=== PATIENT | male | born 1970 | race Caucasian/White ===

== ENCOUNTER 2018-01-13 17:16 | Inpatient (IN) | payer BC ==
[2018-01-13] MEDS ORDERED: NS 0.9% 1000 ML*IV.FLUID IV ONE (18:33)
[2018-01-13] MEDS ORDERED: cefTRIAXone(*) 2 GM in NS 0.9% 100 ML* 100 ML IVPB ONE (18:33)
[2018-01-13] MEDS ORDERED: Vancomycin(*) 1,000 MG in NS 0.9% 250 ML* 250 ML IVPB ONE (18:37)
--- NOTE | 2018-01-13 18:38 | ED ---
Headache - HPI Summary HPI Summary: This is scribe Brenton Lao documenting for attending Aniceto Cortez MD. This patient is a 47 year old M presenting to [facility] with a chief complaint of pounding headache since 01/10/2018. The patient rates the pain 10/10 in severity. Patient reports coughing, fever, body aches, and chills. Patient denies sore throat, ear ache, abdominal pain, and neck pain. Patient has no PMHx or He quit smoking 28 years ago. I, Dr. Cortez, personally performed the services described in this documentation as scribed in my presence, and it is both accurate and complete. - History Of Current Complaint Chief Complaint: EDFever Stated Complaint: HEADACHE,POSS DEHYDRATION Time Seen by Provider: 01/13/18 18:28 Hx Obtained From: Patient Onset/Duration: Sudden Onset, Started days ago - 01/10/2018, Still Present Initially Headache Was: Initial Pain Scale(0-10)= - 10/10 Currently Pain Is: Current Pain Scale(0-10)= - 10/10 Timing: Constant Character: Throbbing Aggravating Factor: Nothing Allevating Factors: Nothing Associated Signs And Symptoms: Fever, Other (Noted In Comments) - Coughing, body aches, chills. Denies sore throat, denies ear ache, denies abdominal pain, and denies neck pain. - Allergies/Home Medications Allergies/Adverse Reactions: Allergies Allergy/AdvReac Type Severity Reaction Status Date / Time codeine Allergy Intermediate Rash Verified 01/13/18 20:33 Home Medications: Home Medications Irbesartan 150 mg PO DAILY 01/13/18 [History Confirmed 01/13/18] PMH/Surg Hx/FS Hx/Imm Hx Endocrine/Hematology History: Denies: Hx Diabetes Cardiovascular History: Denies: Hx Hypertension History: Denies: Hx Renal Disease - Immunization History Date of Tetanus Vaccine: within 2 years Date of Influenza Vaccine: 2012 Immunizations Up to Date: Yes Infectious Disease History: Yes Infectious Disease History: Denies: Traveled Outside the [place] in Last 30 Days - Family History Known Family History: Positive: Other - MS Negative: Diabetes - Social History Alcohol Use: Weekly Substance Use Type: Reports: Marijuana Smoking Status (MU): Former Smoker Review of Systems Positive: Fever, Chills, Other - Body aches Positive: Other - Denies neck pain. Negative: Ear Ache Positive: Cough. Negative: Other - Denies sore throat Negative: Abdominal Pain Positive: Headache - pounding HERRERA All Other Systems Reviewed And Are Negative: Yes Physical Exam - Summary Physical Exam Summary: VITAL SIGNS: Reviewed. GENERAL: Patient is a well-developed and nourished MALE who is lying comfortable in the stretcher. Patient is not in any acute respiratory distress. He does not have meningeal signs. HEAD AND FACE: No signs of trauma. No ecchymosis, hematomas or skull depressions. No sinus tenderness. EYES: PERRLA, EOMI x 2, No injected conjunctiva, no nystagmus. Does not display photophobia. EARS: Hearing grossly intact. Ear canals and tympanic membranes are within normal limits. MOUTH: Oropharynx within normal limits. NECK: Supple, trachea is midline, no adenopathy, no JVD, no carotid bruit, no c- spine tenderness, neck with full ROM. CHEST: Symmetric, no tenderness at palpation LUNGS: Clear to auscultation bilaterally. No wheezing or crackles. CVS: Regular rate and rhythm, S1 and S2 present, no murmurs or gallops appreciated. ABDOMEN: Soft, non-tender. No signs of distention. No rebound no guarding, and no masses palpated. Bowel sounds are normal. EXTREMITIES: FROM in all major joints, no edema, no cyanosis or clubbing. NEURO: Alert and oriented x 3. No acute neurological deficits. Speech is normal and follows commands. SKIN: Dry and warm Triage Information Reviewed: Yes Vital Signs On Initial Exam: Initial Vitals Temp Pulse Resp BP Pulse Ox 100.1 F 116 20 164/91 93 01/13/18 17:18 01/13/18 17:18 01/13/18 17:18 01/13/18 17:18 01/13/18 17:18 Vital Signs Reviewed: Yes Diagnostics - Vital Signs Vital Signs Temp Pulse Resp BP Pulse Ox 01/13/18 18:25 104.4 F 109 22 154/97 95 01/13/18 17:18 100.1 F 116 20 164/91 93 - Laboratory Result Diagrams: 01/13/18 19:16 01/13/18 19:16 Lab Statement: Any lab studies that have been ordered have been reviewed, and results considered in the medical decision making process. - Radiology Chest X-Ray Radiology Interpretation Completed By: Radiologist - LEFT-SIDED PNEUMONITIS. ED Physician has reviewed this imaging report. - EKG No standard instances Cardiac Rate: Tachycardia - 107 BPM EKG Rhythm: Sinus Rhythm EKG Interpretation: 18:42. No ST elevations. Normal axis. Headache Course/Dx - Course Assessment/Plan: This patient is a 47-year-old male who presents to the emergency room with a chief complaint of having fevers and a headache and some dry cough. Blood test results shows is anemia, fibrinogen only 150, sodium 132 , carbon dioxide 20, AST is 52, AST of 78, and CRP are 158. In the ED course the patient was flat for sepsis. The patient was given IV fluids, Rocephin and vancomycin since the patient is having and headache. The chest x-ray shows that the patient has a left lower lobe pneumonia therefore I believe that all his symptoms are secondary to pneumonia. After medications the patients symptoms have improved, and he is normotensive. I discussed my physical exam, findings and test results with Dr. Doshi who accepted the patient for admission. The patient is hemodynamically stable alert oriented 3. - Diagnoses Provider Diagnoses: Pneumonia, Sepsis - Critical Care Time Critical Care Time: 30-74 min Discharge - Sign-Out/Discharge Documenting (check all that apply): Patient Departure - Admit to Kaila Doshi DO - Discharge Plan Condition: Stable Disposition: ADMITTED TO [facility] Referrals: No Primary Care Phys,NOPCP [Primary Care Provider] - - Billing Disposition and Condition Condition: STABLE Disposition: Admitted to [facility]
[2018-01-13] MEDS ORDERED: NS 0.9% 250 ML* 250 ML ONE (19:01)
[2018-01-13] MEDS ORDERED: diPHENhydraMINE IV* 50 MG/ML 1 ml VIAL (BENADRYL) IM ONE (19:10)
[2018-01-13] MEDS ORDERED: Metoclopramide IV* 5 MG/ML 2 ML VIAL IV ONE (19:10)
[2018-01-13] MEDS ORDERED: Acetaminophen TAB* 325 MG PO ONE (19:10)
[2018-01-13] MEDS ORDERED: Vancomycin(*) 1,000 MG BAG/ADDV IVPB ONE (19:12)
[2018-01-13] MEDS ORDERED: diPHENhydraMINE IV* 50 MG/ML 1 ml VIAL (BENADRYL) IV ONE (19:22)
[2018-01-13 19:27] LABS: ABS Basophils 0 10^3/ul (0-0.2); ABS Eosinophils 0 10^3/ul (0-0.6); ABS Lymphocytes 0.7 10^3/ul (1.0-4.8); ABS Monocytes 1.4 10^3/ul (0-0.8); ABS Neutrophils 8.6 10^3/ul (1.5-7.7); ABS Nucleated RBC 0 10^3/ul; Eosinophil % 0.1 % (0-6); Hematocrit 36 % (42-52); Hemoglobin 12.1 g/dl (14.0-18.0); Lymphocyte % 6.5 % (25-47); Mean Corpuscular HGB Conc 34 g/dl (31-36); Mean Corpuscular Hemoglobin 30 pg (27-31); Mean Corpuscular Volume 89 fL (80-94); Mean Platelet Volume 7.8 um3 (7.4-10.4); Nucleated Red Blood Cells % 0; Platelet Count 194 10^3/ul (150-450); Red Cell Distribution Width 13 % (10.5-15); White Blood Count 10.8 10^3/ul (3.5-10.8)
--- NOTE | 2018-01-13 19:33 | RAD ---
INDICATION: Pneumonia COMPARISON: None TECHNIQUE: An AP portable view obtained at 1915 hours is submitted. FINDINGS: Bones/Soft Tissues: There are no acute bony findings. Cardiomediastinal: The cardiomediastinal silhouette is normal. Lungs: There is no infiltrate in the left lower lobe. Pleura: There are no pleural effusions. Other: None IMPRESSION: LEFT-SIDED PNEUMONITIS
[2018-01-13 19:40] LABS: INR 1.12 (0.77-1.02)
[2018-01-13 19:58] LABS: EGFR Non-African American 94.5 (>60)
[2018-01-13 21:34] LABS: Urine Appearance Clear; Urine Blood Negative (Negative); Urine Color Yellow; Urine Ketones Negative (Negative); Urine Protein Negative (Negative); Urine Specific Gravity 1.013 (1.010-1.030); Urine Urobilinogen Negative (Negative)
[2018-01-13] MEDS ORDERED: Ondansetron INJ* 2 MG/ML VIAL IV PRN (22:03)
--- NOTE | 2018-01-13 23:52 | HP ---
CC: Dr. Singh* HISTORY AND PHYSICAL: DATE OF ADMISSION: 01/13/18 PRIMARY CARE PROVIDER: Dr. Singh. CHIEF COMPLAINT: Headache. HISTORY OF PRESENT ILLNESS: Mr. Celestin is a 47-year-old male who states that this past 01/10/18, he began to feel unwell. He noticed that he had severe headache as well as drenching sweats. 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 He states that he has had some cough, but does not produce any sputum. He does note that when he coughs, he has severe pain in his head. He denies any chest pain. He does feel shortness of breath, however again he has been able to push through feeling unwell. On the day of admission, the patient noted a fever of 102 at home. In addition, he states he has had very poor appetite over the last few days. He thinks he has been trying to drink enough, but he does feel somewhat dehydrated. He has also had significant diarrhea since this past Wednesday. PAST MEDICAL HISTORY: Hypertension. PAST SURGICAL HISTORY: None. MEDICATIONS: Irbesartan 150 mg p.o. daily. ALLERGIES: CODEINE. FAMILY HISTORY: Mom in her 50s of lung cancer. She has also had multiple sclerosis. Dad young secondary to an accident. SOCIAL HISTORY: The patient is a former smoker. He quit at the age of 19. He drinks alcohol on a weekly basis. 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 He is . He has 3 children. He indicates that his , Radha, would be his healthcare proxy. REVIEW OF SYSTEMS: A complete 11-system review of systems is obtained. Pertinent positives and negatives are as per HPI and in addition, the patient also complains of feeling very weak today as well as cramping in his legs that he thinks is due to dehydration. PHYSICAL EXAMINATION GENERAL: The patient is a well-developed, middle-aged male seen sitting up in the stretcher, appearing slightly ill, but in no acute distress. VITAL SIGNS: Blood pressure 150/106, pulse 105, respirations 28, temp 104.4, and O2 sat 96% on room air. HEENT: Pupils are equal and round. Extraocular muscles are intact. Oropharynx is clear. Oral mucosa is moist. There is no submandibular, cervical , or supraclavicular adenopathy. Thyroid is not enlarged. No thyroid nodules noted. PULMONARY: Lungs are clear to auscultation bilaterally. CARDIAC: Normal S1, S2. Regular rate and rhythm. I did not appreciate any murmurs. ABDOMEN: Bowel sounds present. Abdomen is soft, nontender, nondistended. MUSCULOSKELETAL: There is no cyanosis or clubbing of the digits. There is full active range of motion of all 4 extremities. SKIN: Warm and dry. There are no rashes. NEUROLOGIC: Cranial nerves II through XII are grossly intact. Sensation is intact to light touch throughout. Strength is 5/5 and symmetric in both upper and lower extremities bilaterally. PSYCH: The patient is alert. He is oriented x3. Affect appears appropriate. DIAGNOSTIC STUDIES/LAB DATA: WBC 10.8, hemoglobin 12.1, hematocrit 36, platelets 194. ESR 75. INR 1.12. Sodium 132, potassium 3.37, chloride 104, CO2 of 20, BUN of 11, creatinine 0.86, glucose 128, lactic acid 1.1, calcium 8.7. Bilirubin 0.6, AST 52, ALT 57, alk phos 89. Troponin 0.01. CRP 158.63. BNP 45. Albumin 3.9. Procalcitonin 0.1. Urinalysis reveals clear urine with specific gravity of 1.013. Chest x-ray reveals left-sided pneumonitis. ASSESSMENT AND PLAN: Mr. Celestin is a 47-year-old male with history of hypertension, who since 01/10/18 states that he has had headache, drenching sweats, and slight cough and is admitted for sepsis secondary to possible left lower lobe pneumonia. 1. Sepsis secondary to possible left lower lobe pneumonia. The patient is septic by SIRS criteria with tachycardia, tachypnea, and fever. At this point, my suspicion is that the patient does have a left lower lobe pneumonia given his chest x-ray findings, however clinically he does not seem to be having significant cough or sputum production. A sputum culture has been ordered. In addition, I will send off urine for Legionella and Strep pneumoniae antigens. I do think that Legionella can be high on the differential given his work with HVACs. He does state [facility] tests the water every other month and it was tested earlier this month for Legionella. My suspicion for Legionella comes from the patient having respiratory infiltrate, elevated LFTs, elevated CRP, and diarrhea. Additionally, he is slight hyponatremic though this could just be from volume depletion. For now, the patient will be started on ceftriaxone and azithromycin. 2. Hypertension. The patient's blood pressure is moderately elevated. He did not take his ARB this morning. I am going to hold off on treating his pressure at this point, but will resume his ARB tomorrow as long as his pressure holds steady. 3. DVT prophylaxis. According to the Adult Thrombosis Prophylaxis Risk Factor Assessment Guide, the patient has a total risk factor score of 3 making him high risk. He should be placed on heparin 5000 units subcutaneous q.8 hours. 4. Code status is full. TIME SPENT: Sixty-five minutes was spent admitting this patient. [id number]/CPS #: [id number] MTDD
[2018-01-14] MEDS: Ibuprofen TAB* 600 MG PO PRN ×3 (00:20→18:30)
[2018-01-14] MEDS: NS 0.9% 1000 ML* 1,000 ML IV SCH ×3 (01:35→18:30)
[2018-01-14] MEDS ORDERED: NS 0.9% 250 ML* 250 ML ONE (06:08)
[2018-01-14 06:09] LABS: ABS Basophils 0 10^3/ul (0-0.2); ABS Eosinophils 0 10^3/ul (0-0.6); ABS Monocytes 1.5 10^3/ul (0-0.8); ABS Nucleated RBC 0 10^3/ul; Eosinophil % 0.2 % (0-6); Hematocrit 39 % (42-52); Hemoglobin 13.2 g/dl (14.0-18.0); Lymphocyte % 9.8 % (25-47); Mean Corpuscular HGB Conc 34 g/dl (31-36); Mean Corpuscular Hemoglobin 31 pg (27-31); Mean Corpuscular Volume 90 fL (80-94); Mean Platelet Volume 7.7 um3 (7.4-10.4); Nucleated Red Blood Cells % 0.1; Platelet Count 192 10^3/ul (150-450); Red Cell Distribution Width 13 % (10.5-15); White Blood Count 10.6 10^3/ul (3.5-10.8)
[2018-01-14 06:32] LABS: EGFR Non-African American 81.3 (>60)
[2018-01-14] MEDS: Azithromycin IV(*) 500 MG in NS 0.9% 250 ML* 250 ML IVPB SCH (06:34)
[2018-01-14] MEDS: Heparin VIAL(*) 5000 UNITS/ML VIAL (FIVE THOUSAND) SUBCUT SCH ×3 (06:34→21:10)
[2018-01-14] MEDS: Losartan TAB* 25 MG PO SCH (08:14)
--- NOTE | 2018-01-14 11:48 | PN ---
Subjective Date of Service: 01/14/18 Interval History: Pt reports he continues to have a "bad HERRERA" and reports intermittent fevers. Denies chills. Denies neck pain. Reports body aches. No rashes. Reports 3-4 large watery green bowel movements today. No abdominal pain reports he just gets some cramping prior to having to have a BM then it resolves. He has been eating a little more today and states he feels a little better compared to yesterday. No N/V. Pt "nibbled" on lunch and ate english fries Family at bedside. Objective Active Medications: Heparin Sodium (Porcine) (Heparin Vial(*)) 5,000 units SUBCUT Q8HR [facility] Last Admin: 01/14/18 06:34 Dose: 5,000 units Sodium Chloride (Ns 0.9% 1000 Ml*) 1,000 mls @ 125 mls/hr IV PER RATE [facility] Last Admin: 01/14/18 01:35 Dose: 125 mls/hr Azithromycin 500 mg/ Sodium (Chloride) 250 mls @ 250 mls/hr IVPB Q24H [facility] Last Admin: 01/14/18 06:34 Dose: 250 mls/hr Ceftriaxone Sodium 1 gm/ (Sodium Chloride) 50 mls @ 200 mls/hr IVPB Q24H [facility] Ibuprofen (Motrin Tab*) 600 mg PO Q8H PRN PRN Reason: pain or fever Last Admin: 01/14/18 08:14 Dose: 600 mg Losartan Potassium (Cozaar Tab*) 50 mg PO DAILY [facility] Last Admin: 01/14/18 08:14 Dose: 50 mg Ondansetron HCl (Zofran Inj*) 4 mg IV Q6H PRN PRN Reason: NAUSEA Vital Signs - 8 hr 01/14/18 01/14/18 01/14/18 04:03 08:00 08:04 Temperature 99.0 F 102.1 F Pulse Rate 87 109 Respiratory 20 20 24 Rate Blood Pressure 128/81 169/85 (mmHg) O2 Sat by Pulse 100 96 Oximetry 01/14/18 09:59 Temperature 98.5 F Pulse Rate Respiratory Rate Blood Pressure (mmHg) O2 Sat by Pulse Oximetry Oxygen Devices in Use Now: None Appearance: 47 yo obese male A+O x3 in NAD Eyes: No Scleral Icterus, PERRLA Ears/Nose/Mouth/Throat: NL Teeth, Lips, Gums, Mucous Membranes Moist Neck: NL Appearance and Movements; NL JVP Respiratory: Symmetrical Chest Expansion and Respiratory Effort, Clear to Auscultation, - - noted dry cough Cardiovascular: NL Sounds; No Murmurs; No JVD, RRR, No Edema Abdominal: NL Sounds; No Tenderness; No Distention, - - obese Extremities: No Edema, No Clubbing, Cyanosis Skin: No Rash or Ulcers, No Nodules or Sclerosis Neurological: Alert and Oriented x 3, NL Sensation, NL Gait, NL Muscle Strength and Tone, - - negative Brudzinski and Kernig sign Lines/Tubes/Other Access: Clean, Dry and Intact Peripheral IV Nutrition: Taking PO's Result Diagrams: 01/14/18 05:55 01/14/18 05:55 Microbiology and Other Data: Microbiology 01/14/18 10:30 Gram Stain - Final Sputum 01/14/18 05:00 Legionella Urinary Antigen - Final Urine Negative Legionella Antigen Streptococcus pneumoniae Ag Screen - Final Negative S. pneumo Antigen Assess/Plan/Problems-Billing Assessment: Mr. Celestin is a 47 yo male with a PMH HTN who since 01/10 reports HERRERA, drenching sweats, slight dry cough, diarhhea who was found to have sepsis secondary to possible left lower lobe pneumonia - Patient Problems (1) Sepsis Comment: pt reports improvement today but continues to have HERRERA and fevers. Low suspicion for menigitis. Met SIRS criteria on admission with tachypnea, tachycardia and fever. negative lactic suspect secondary to pneumonia, most likely viral Chest xray showing Left lobe pneumonitis Legionella and s pneumonia urine antigens negative Procalcitonin negative. CRP elevated, repeat CRP blood and sputum cx pending - send urine cx continue azithro and ceftriaxone IV abx Continue IVFs (2) Transaminitis Comment: - no change in LFTs today - could be secondary from viral infection or could be secondary to fatty liver d/t obesity. continue to trend. Will add on Hepatitis panel. (3) Diarrhea Comment: -suspect secondary to viral illness. No abdominal pain. - Send stool studies/cx - add probiotic - continue IVFs (4) HTN (hypertension) Comment: controlled. continue home losartan. (5) DVT prophylaxis Comment: HSQ (6) Full code status Status and Disposition: inpatient. home when medically stable
[2018-01-14] MEDS ORDERED: Acetaminophen TAB* 325 MG PO ONE (14:23)
[2018-01-14] MEDS ORDERED: Lactobacillus Acidophilus* 1 TAB PO ONE (18:07)
[2018-01-14] MEDS ORDERED: diPHENhydraMINE PO* 50 MG PO ONE (18:10)
[2018-01-14] MEDS: cefTRIAXone* 1 GM in NS 0.9% 50 ML BAG IVPB SCH (19:25)
[2018-01-14] MEDS: Acetaminophen TAB* 325 MG PO PRN (19:28)
[2018-01-14 19:40] LABS: Urine Appearance Clear; Urine Blood 1+ (Negative); Urine Color Yellow; Urine Ketones Negative (Negative); Urine Protein 1+(30 mg/dL) (Negative); Urine Red Blood Cell 1+(3-5/hpf) (Absent); Urine Specific Gravity 1.015 (1.010-1.030); Urine Urobilinogen Negative (Negative); Urine White Blood Cell Trace(0-5/hpf) (Absent)
[2018-01-14] MEDS ORDERED: hydrALAZINE IV* 20 MG/ML VIAL IV SLOW PU PRN (19:44)
[2018-01-14] MEDS ORDERED: cefTRIAXone VIAL(*) 500 MG in NS 0.9% 50 ML* 50 ML IVPB SCH (20:00)
[2018-01-15] MEDS: NS 0.9% 1000 ML* 1,000 ML IV SCH (01:37)
[2018-01-15] MEDS: Ibuprofen TAB* 600 MG PO PRN (04:08)
[2018-01-15 05:45] LABS: ABS Basophils 0 10^3/ul (0-0.2); ABS Eosinophils 0 10^3/ul (0-0.6); ABS Lymphocytes 0.7 10^3/ul (1.0-4.8); ABS Monocytes 1.3 10^3/ul (0-0.8); ABS Neutrophils 7.4 10^3/ul (1.5-7.7); ABS Nucleated RBC 0 10^3/ul; Eosinophil % 0.4 % (0-6); Hematocrit 35 % (42-52); Hemoglobin 11.9 g/dl (14.0-18.0); Lymphocyte % 7.1 % (25-47); Mean Corpuscular HGB Conc 34 g/dl (31-36); Mean Corpuscular Hemoglobin 30 pg (27-31); Mean Corpuscular Volume 88 fL (80-94); Mean Platelet Volume 7.8 um3 (7.4-10.4); Nucleated Red Blood Cells % 0; Platelet Count 191 10^3/ul (150-450); Red Blood Count 3.95 10^6/ul (4.00-5.40); Red Cell Distribution Width 13 % (10.5-15); White Blood Count 9.4 10^3/ul (3.5-10.8)
[2018-01-15] MEDS: Heparin VIAL(*) 5000 UNITS/ML VIAL (FIVE THOUSAND) SUBCUT SCH ×3 (05:49→20:37)
[2018-01-15] MEDS: Azithromycin IV(*) 500 MG in NS 0.9% 250 ML* 250 ML IVPB SCH (05:49)
[2018-01-15] MEDS: Losartan TAB* 25 MG PO SCH (08:21)
[2018-01-15] MEDS: Acetaminophen TAB* 325 MG PO PRN ×3 (10:05→23:34)
[2018-01-15] MEDS ORDERED: oxyCODONE TAB* 5 MG TAB PO ONE (11:07)
[2018-01-15] MEDS ORDERED: hydrALAZINE IV* 20 MG/ML VIAL IV SLOW PU PRN (16:00)
[2018-01-15] MEDS: oxyCODONE TAB* 5 MG TAB PO PRN ×2 (16:18→23:29)
--- NOTE | 2018-01-15 16:18 | PN ---
Subjective Date of Service: 01/15/18 Interval History: Pt reports he feels much better today. His HERRERA is still persistent but much improved today. No fevers throughout the day but now feels like his fever is coming back. Reports overall feels better and sat up in chair today. Reports poor appetite but has been tolerating his clear liquid diet - he would like to advance his diet. Diarrhea has resolved, reports 2 soft but formed stools today. No abdominal pain. Objective Active Medications: Acetaminophen (Tylenol Tab*) 650 mg PO Q6H PRN PRN Reason: FEVER/PAIN Last Admin: 01/15/18 10:05 Dose: 650 mg Heparin Sodium (Porcine) (Heparin Vial(*)) 5,000 units SUBCUT Q8HR [facility] Last Admin: 01/15/18 13:41 Dose: 5,000 units Hydralazine HCl (Apresoline Iv*) 5 mg IV SLOW PU Q6H PRN PRN Reason: BLOOD PRESSURE Azithromycin 500 mg/ Sodium (Chloride) 250 mls @ 250 mls/hr IVPB Q24H [facility] Last Admin: 01/15/18 05:49 Dose: 250 mls/hr Ceftriaxone Sodium 1 gm/ (Sodium Chloride) 50 mls @ 200 mls/hr IVPB Q24H [facility] Last Admin: 01/14/18 19:25 Dose: 200 mls/hr Ibuprofen (Motrin Tab*) 600 mg PO Q8H PRN PRN Reason: pain or fever Last Admin: 01/15/18 04:08 Dose: 600 mg Losartan Potassium (Cozaar Tab*) 50 mg PO DAILY [facility] Last Admin: 01/15/18 08:21 Dose: 50 mg Ondansetron HCl (Zofran Inj*) 4 mg IV Q6H PRN PRN Reason: NAUSEA Vital Signs - 8 hr 01/15/18 01/15/18 01/15/18 08:14 11:52 12:34 Temperature 98.9 F 98.7 F Pulse Rate 95 97 Respiratory 21 22 15 Rate Blood Pressure 145/77 161/86 (mmHg) O2 Sat by Pulse 97 97 Oximetry 01/15/18 14:23 Temperature Pulse Rate Respiratory 16 Rate Blood Pressure (mmHg) O2 Sat by Pulse Oximetry Oxygen Devices in Use Now: None Appearance: obese 47 yo male A+Ox3 in NAD Eyes: No Scleral Icterus, PERRLA Ears/Nose/Mouth/Throat: NL Teeth, Lips, Gums, Mucous Membranes Moist Respiratory: Symmetrical Chest Expansion and Respiratory Effort, Clear to Auscultation Cardiovascular: NL Sounds; No Murmurs; No JVD, RRR, No Edema Abdominal: NL Sounds; No Tenderness; No Distention Lymphatic: No Cervical Adenopathy, No Auricular Adenopathy Extremities: No Edema, No Clubbing, Cyanosis Skin: No Rash or Ulcers, No Nodules or Sclerosis Neurological: Alert and Oriented x 3, NL Sensation, NL Gait, NL Muscle Strength and Tone Lines/Tubes/Other Access: Clean, Dry and Intact Peripheral IV Nutrition: Taking PO's Result Diagrams: 01/15/18 05:26 01/15/18 05:26 Microbiology and Other Data: Microbiology 01/14/18 10:30 Gram Stain - Final Sputum 01/14/18 05:00 Legionella Urinary Antigen - Final Urine Negative Legionella Antigen Streptococcus pneumoniae Ag Screen - Final Negative S. pneumo Antigen Assess/Plan/Problems-Billing Assessment: Mr. Celestin is a 47 yo male with a H HTN who since 01/10 reports HERRERA, fevers, drenching sweats, slight dry cough, diarrhea who was found to have sepsis secondary to possible left lower lobe pneumonia - Patient Problems (1) Sepsis Comment: pt reports improvement today with less severe HERRERA and general sense of improvement. Fever of 103 overnight. Met SIRS criteria on admission with tachypnea, tachycardia and fever. negative lactic suspect secondary to pneumonia, most likely viral Chest xray showing Left lobe pneumonitis Legionella and s pneumonia urine antigens negative Procalcitonin negative. CRP elevated blood cx growing staph epi 1 bottle suspect contaimination. sputum cx pending - preliminary normal hunter urinalysis unremarkable Hepatitis panel negative, influenza negative, MRSA nasal PCR negative Patient agrees to HIV testing continue azithro and ceftriaxone IV abx Repeat blood cx (2) Transaminitis Comment: - no change in LFTs today - could be secondary from viral infection or could be secondary to fatty liver d/t obesity. continue to trend. Hepatitis panel negative. (3) Diarrhea Comment: - resolved -suspect secondary to viral illness. No abdominal pain. - Stool studies/cx pending - add probiotic (4) HTN (hypertension) Comment: continue home losartan. hydralazine prn (5) DVT prophylaxis Comment: HSQ (6) Full code status Status and Disposition: inpatient. home when medically stable
[2018-01-15] MEDS ORDERED: NS 0.9% 1000 ML* 1,000 ML IV SCH (17:30)
[2018-01-15] MEDS: cefTRIAXone* 1 GM in NS 0.9% 50 ML BAG IVPB SCH (19:18)
[2018-01-15] MEDS: Butalb/Acetamin/Caff TAB* 1 TAB PO PRN (20:37)
[2018-01-16] MEDS: Butalb/Acetamin/Caff TAB* 1 TAB PO PRN ×2 (04:14→12:23)
[2018-01-16] MEDS: Azithromycin IV(*) 500 MG in NS 0.9% 250 ML* 250 ML IVPB SCH (04:21)
[2018-01-16] MEDS: Heparin VIAL(*) 5000 UNITS/ML VIAL (FIVE THOUSAND) SUBCUT SCH ×3 (05:17→21:37)
[2018-01-16 06:36] LABS: ABS Basophils 0 10^3/ul (0-0.2); ABS Eosinophils 0.1 10^3/ul (0-0.6); ABS Lymphocytes 1.2 10^3/ul (1.0-4.8); ABS Monocytes 1.4 10^3/ul (0-0.8); ABS Neutrophils 6.8 10^3/ul (1.5-7.7); ABS Nucleated RBC 0 10^3/ul; Eosinophil % 0.9 % (0-6); Hematocrit 33 % (42-52); Hemoglobin 11.4 g/dl (14.0-18.0); Lymphocyte % 12.8 % (25-47); Mean Corpuscular HGB Conc 35 g/dl (31-36); Mean Corpuscular Hemoglobin 31 pg (27-31); Mean Corpuscular Volume 88 fL (80-94); Mean Platelet Volume 8.1 um3 (7.4-10.4); Nucleated Red Blood Cells % 0.1; Platelet Count 210 10^3/ul (150-450); Red Blood Count 3.71 10^6/ul (4.00-5.40); Red Cell Distribution Width 14 % (10.5-15); White Blood Count 9.5 10^3/ul (3.5-10.8)
[2018-01-16 06:53] LABS: EGFR Non-African American 105.8 (>60)
[2018-01-16] MEDS: Losartan TAB* 25 MG PO SCH (07:45)
[2018-01-16] MEDS: Analgesic BALM* 114 GM TOPICAL PRN ×2 (07:45→21:32)
[2018-01-16] MEDS: Acetaminophen TAB* 325 MG PO PRN ×2 (07:45→18:10)
[2018-01-16] MEDS: oxyCODONE TAB* 5 MG TAB PO PRN (07:45)
--- NOTE | 2018-01-16 09:47 | PN ---
Subjective Date of Service: 01/16/18 Interval History: Patient reports he feels much better today and feels that he is improving daily , reports less of a HERRERA, cough improving, body aches resolved, appetite improving. Fever last night. Currently denies fever and chills. Diarrhea resolved Objective Active Medications: Acetaminophen (Tylenol Tab*) 325 mg PO Q6H PRN PRN Reason: FEVER/PAIN Last Admin: 01/16/18 07:45 Dose: 325 mg Acetaminophen/Butalbital/Caffeine (Fioricet Tab*) 1 tab PO Q6H PRN PRN Reason: HEADACHE Last Admin: 01/16/18 04:14 Dose: 1 tab Heparin Sodium (Porcine) (Heparin Vial(*)) 5,000 units SUBCUT Q8HR [facility] Last Admin: 01/16/18 05:17 Dose: 5,000 units Hydralazine HCl (Apresoline Iv*) 5 mg IV SLOW PU Q6H PRN PRN Reason: BLOOD PRESSURE Last Admin: 01/15/18 16:17 Dose: 5 mg Azithromycin 500 mg/ Sodium (Chloride) 250 mls @ 250 mls/hr IVPB Q24H [facility] Last Admin: 01/16/18 04:21 Dose: 250 mls/hr Ceftriaxone Sodium 1 gm/ (Sodium Chloride) 50 mls @ 200 mls/hr IVPB Q24H [facility] Last Admin: 01/15/18 19:18 Dose: 200 mls/hr Potassium Chloride (Potassium Chloride 20 Meq/100 Ml Ivpremix*) 20 meq in 100 mls @ 50 mls/hr IV Q2H [facility] Stop: 01/16/18 12:59 Ibuprofen (Motrin Tab*) 600 mg PO Q8H PRN PRN Reason: pain or fever Last Admin: 01/15/18 04:08 Dose: 600 mg Losartan Potassium (Cozaar Tab*) 50 mg PO DAILY [facility] Last Admin: 01/16/18 07:45 Dose: 50 mg Multi-Ingredient Liniment/Rub (Brian Levine*) 1 applic TOPICAL .PRN PRN PRN Reason: STIFF NECK Last Admin: 01/16/18 07:45 Dose: 1 applic Ondansetron HCl (Zofran Inj*) 4 mg IV Q6H PRN PRN Reason: NAUSEA Oxycodone HCl (Roxycodone Tab*) 5 mg PO Q6H PRN PRN Reason: SEVERE PAIN Last Admin: 01/16/18 07:45 Dose: 5 mg Vital Signs - 8 hr 01/16/18 01/16/18 01/16/18 04:05 04:14 06:48 Temperature 101.9 F Pulse Rate 96 Respiratory 20 20 20 Rate Blood Pressure 156/87 (mmHg) O2 Sat by Pulse 94 Oximetry 01/16/18 01/16/18 01/16/18 07:42 07:45 08:51 Temperature 99.2 F Pulse Rate 91 Respiratory 12 20 22 Rate Blood Pressure 149/80 (mmHg) O2 Sat by Pulse 97 Oximetry Oxygen Devices in Use Now: None Appearance: obese 47 yo male A+O x3 in NAD sitting up in bed Eyes: No Scleral Icterus, PERRLA Ears/Nose/Mouth/Throat: NL Teeth, Lips, Gums, Mucous Membranes Moist Neck: NL Appearance and Movements; NL JVP Respiratory: Symmetrical Chest Expansion and Respiratory Effort, Clear to Auscultation Cardiovascular: NL Sounds; No Murmurs; No JVD, RRR, No Edema Abdominal: NL Sounds; No Tenderness; No Distention Lymphatic: No Cervical Adenopathy Extremities: No Edema, No Clubbing, Cyanosis Skin: No Rash or Ulcers, No Nodules or Sclerosis Neurological: Alert and Oriented x 3, NL Sensation, NL Gait, NL Muscle Strength and Tone Lines/Tubes/Other Access: Clean, Dry and Intact Peripheral IV Nutrition: Taking PO's Result Diagrams: 01/16/18 06:04 01/16/18 06:04 Microbiology and Other Data: Microbiology 01/14/18 10:30 Gram Stain - Final Sputum 01/14/18 05:00 Legionella Urinary Antigen - Final Urine Negative Legionella Antigen Streptococcus pneumoniae Ag Screen - Final Negative S. pneumo Antigen Assess/Plan/Problems-Billing Assessment: Mr. Celestin is a 47 yo male with a PMH HTN who since 01/10 reports HERRERA, fevers, drenching sweats, slight dry cough, diarrhea who was found to have sepsis secondary to possible left lower lobe pneumonia - Patient Problems (1) Sepsis Comment: Resolved. Suspect viral syndrome, possible pneumonia pt reports improvement today with less severe HERRERA and general sense of improvement. Met SIRS criteria on admission with tachypnea, tachycardia and fever. negative lactic Chest xray showing Left lobe pneumonitis Legionella and s pneumonia urine antigens negative Procalcitonin negative. CRP elevated blood cx growing staph epi 1 bottle suspect contaimination. sputum cx pending - preliminary normal hunter urinalysis unremarkable Hepatitis panel negative, influenza negative, MRSA nasal PCR negative Patient agrees to HIV testing - pending continue azithro and ceftriaxone IV abx Repeat blood cx sent 01/15 pending (2) Transaminitis Comment: - stable -could be secondary from viral infection or could be secondary to fatty liver d/t obesity. continue to trend. Hepatitis panel negative. (3) Diarrhea Comment: - resolved -suspect secondary to viral illness. No abdominal pain. - Stool studies/cx pending - add probiotic (4) HTN (hypertension) Comment: continue home losartan. hydralazine prn (5) DVT prophylaxis Comment: HSQ (6) Full code status Status and Disposition: inpatient. home when medically stable
[2018-01-16] MEDS: KCL 20 MEQ/100 ML IVPREMIX* 20 MEQ/100 ML BAG IV SCH ×2 (09:55→12:07)
[2018-01-16] MEDS ORDERED: NS 0.9% 1000 ML* 1,000 ML IV SCH (10:45)
[2018-01-16] MEDS: cefTRIAXone* 1 GM in NS 0.9% 50 ML BAG IVPB SCH (21:14)
[2018-01-17] MEDS: Azithromycin IV(*) 500 MG in NS 0.9% 250 ML* 250 ML IVPB SCH (05:51)
[2018-01-17] MEDS: Heparin VIAL(*) 5000 UNITS/ML VIAL (FIVE THOUSAND) SUBCUT SCH (06:05)
[2018-01-17 06:39] LABS: ABS Basophils 0 10^3/ul (0-0.2); ABS Eosinophils 0.4 10^3/ul (0-0.6); ABS Lymphocytes 1.4 10^3/ul (1.0-4.8); ABS Monocytes 1.4 10^3/ul (0-0.8); ABS Neutrophils 4.8 10^3/ul (1.5-7.7); ABS Nucleated RBC 0 10^3/ul; Eosinophil % 4.5 % (0-6); Hematocrit 33 % (42-52); Hemoglobin 11.2 g/dl (14.0-18.0); Lymphocyte % 17.5 % (25-47); Mean Corpuscular HGB Conc 34 g/dl (31-36); Mean Corpuscular Hemoglobin 31 pg (27-31); Mean Corpuscular Volume 89 fL (80-94); Mean Platelet Volume 7.9 um3 (7.4-10.4); Nucleated Red Blood Cells % 0; Platelet Count 276 10^3/ul (150-450); Red Blood Count 3.68 10^6/ul (4.00-5.40); Red Cell Distribution Width 14 % (10.5-15); White Blood Count 8.1 10^3/ul (3.5-10.8)
[2018-01-17 07:10] LABS: EGFR Non-African American 98.5 (>60)
[2018-01-17] MEDS: Acetaminophen TAB* 325 MG PO PRN (07:30)
[2018-01-17] MEDS: Losartan TAB* 25 MG PO SCH ×2 (09:49→11:58)
--- NOTE | 2018-01-17 11:00 | DCNOTE ---
Subjective Date of Service: 01/17/18 Interval History: Pt reports he feels "much much better and Id like to be discharged". He denies any fever/chills overnight and states he feels well this morning - biggest complaint is "I have gas" - denies feeling bloated, reports normal BM this am. No nausea or abdominal pain. He reports the body aches and HERRERA have resolved. He feels steady on his feet. Discussed elevated LFTs - we do not know his baseline - he reports he drinks 1- 2x a week drinking any where from "2-24 beers - I can easily drink a case but sometimes Ill do that a few times a week and sometimes I wont drink for a week or two". He denies ever being told he has elevated liver enzymes or liver abnormality Discussed with pt HgA1C of 6 placing him in the prediabetes range - he states "thats just not true my doctors does blood work every year" I again explain to the patient this is not an acute illness maker and carbajal dx him in the prediabetes range. He is not interested in [facility] referral and states he will f/u with his primary care provider. Diet suggestions were given. Pt is being very short with myself and staff stating he is frustrated and wants to go home "right this second" - he agrees at this time to wait for Liver us results Objective Active Medications: Acetaminophen (Tylenol Tab*) 325 mg PO Q6H PRN PRN Reason: FEVER/PAIN Last Admin: 01/17/18 07:30 Dose: 325 mg Acetaminophen/Butalbital/Caffeine (Fioricet Tab*) 1 tab PO Q6H PRN PRN Reason: HEADACHE Last Admin: 01/16/18 12:23 Dose: 1 tab Cefpodoxime Proxetil (Vantin (Nf)) 200 mg PO Q12H [facility] Heparin Sodium (Porcine) (Heparin Vial(*)) 5,000 units SUBCUT Q8HR [facility] Last Admin: 01/17/18 06:05 Dose: 5,000 units Hydralazine HCl (Apresoline Iv*) 5 mg IV SLOW PU Q6H PRN PRN Reason: BLOOD PRESSURE Last Admin: 01/15/18 16:17 Dose: 5 mg Ibuprofen (Motrin Tab*) 600 mg PO Q8H PRN PRN Reason: pain or fever Last Admin: 01/15/18 04:08 Dose: 600 mg Losartan Potassium (Cozaar Tab*) 50 mg PO DAILY [facility] Last Admin: 01/17/18 09:49 Dose: Not Given Multi-Ingredient Liniment/Rub (Brian Levine*) 1 applic TOPICAL .PRN PRN PRN Reason: STIFF NECK Last Admin: 01/16/18 21:32 Dose: 1 applic Ondansetron HCl (Zofran Inj*) 4 mg IV Q6H PRN PRN Reason: NAUSEA Oxycodone HCl (Roxycodone Tab*) 5 mg PO Q6H PRN PRN Reason: SEVERE PAIN Last Admin: 01/16/18 07:45 Dose: 5 mg Vital Signs - 8 hr 01/17/18 01/17/18 08:00 08:12 Temperature 98.2 F Pulse Rate 86 Respiratory 20 20 Rate Blood Pressure 136/91 (mmHg) O2 Sat by Pulse 96 Oximetry Oxygen Devices in Use Now: None Appearance: A+O x3 in NAD Eyes: No Scleral Icterus, PERRLA Ears/Nose/Mouth/Throat: NL Teeth, Lips, Gums, Mucous Membranes Moist Neck: NL Appearance and Movements; NL JVP Respiratory: Symmetrical Chest Expansion and Respiratory Effort, Clear to Auscultation Cardiovascular: NL Sounds; No Murmurs; No JVD, RRR, No Edema Abdominal: NL Sounds; No Tenderness; No Distention, No Hepatosplenomegaly Extremities: No Edema, No Clubbing, Cyanosis Skin: No Rash or Ulcers, No Nodules or Sclerosis Neurological: Alert and Oriented x 3, NL Sensation, NL Gait, NL Muscle Strength and Tone Lines/Tubes/Other Access: Clean, Dry and Intact Peripheral IV Nutrition: Taking PO's Result Diagrams: 01/17/18 06:21 01/17/18 06:21 Microbiology and Other Data: Microbiology 01/14/18 10:30 Gram Stain - Final Sputum 01/14/18 05:00 Legionella Urinary Antigen - Final Urine Negative Legionella Antigen Streptococcus pneumoniae Ag Screen - Final Negative S. pneumo Antigen Assess/Plan/Problems-Billing Assessment: Mr. Celestin is a 47 yo male with a PMH HTN who since 01/10 reports HERRERA, fevers, drenching sweats, slight dry cough, diarrhea who was found to have sepsis secondary to possible left lower lobe pneumonia - Patient Problems (1) Sepsis Comment: Resolved. Suspect viral syndrome, possible pneumonia - he did have a noted infiltrate on admission.Possibly could be legonella even though urine antigen was negative - he has been treated with aytpicals to cover Met SIRS criteria on admission with tachypnea, tachycardia and fever. negative lactic Legionella and s pneumonia urine antigens negative Procalcitonin negative. CRP elevated trending down blood cx growing staph epi 1 bottle suspect contaimination. Repeat BC NTD sputum cx normal hunter urinalysis unremarkable Hepatitis panel negative, influenza negative, MRSA nasal PCR negative Patient agrees to HIV testing - pending treated with azithro and ceftriaxone IV abx - plan to switch to Vantin and azithro on DC Side consulted ID who agrees with POC (2) Transaminitis Comment: - ast/alt increased today - unclear why? suspect he may have some abnormality at baseline d/t fatty liver or his alcohol abuse binge drinking. could be secondary from viral infection. He also reported he took a lot of tylenol prior to hospiatlization but is a delayed elevation. Hepatitis panel negative. Exam benign - no tenderness. (3) Diarrhea Comment: - resolved (4) HTN (hypertension) Comment: continue home losartan. hydralazine prn (5) DVT prophylaxis Comment: HSQ (6) Full code status Status and Disposition: inpatient. DC home today
[2018-01-17] MEDS ORDERED: Simethicone TAB* 80 MG TAB.CHEW PO ONE (11:10)
--- NOTE | 2018-01-17 11:49 | RAD ---
HISTORY: Transaminitis COMPARISONS: CT of the abdomen and pelvis dated August 08, 2013 TECHNIQUE: Multiple transverse and longitudinal ultrasound images were obtained of the right upper quadrant. FINDINGS: LIVER: The liver exhibits increased echogenicity without definite focal mass or surface irregularity.. Normal hepatic and portal venous blood flow is duplicated with color flow imaging. There is no gross intrahepatic biliary duct dilatation. GALLBLADDER AND EXTRAHEPATIC BILIARY DUCT: The gallbladder is normal in appearance without intraluminal stones or other soft tissue masses. There is no pericholecystic fluid or gallbladder wall thickening. The common bile duct measures a maximum diameter of 5 mm. PANCREAS: The portions of the pancreas not obscured by bowel gas are normal in appearance. RIGHT KIDNEY: In the right kidney there are 2 anechoic and avascular structures measuring 1.7 and 1.0 cm in greatest dimension most consistent with benign renal cyst. Otherwise the right kidney is normal in size, morphology and echogenicity. AORTA AND IVC: The visualized portions are normal in appearance and not pathologically dilated. IMPRESSION: MOSTLY HOMOGENOUSLY INCREASED ECHOGENICITY OF THE LIVER CAN BE SEEN IN THE SETTING OF HEPATIC STEATOSIS OR OTHER INFILTRATIVE DISEASE OF THE LIVER.
[2018-01-17 11:50] VITALS: BP 141/84
[2018-01-17] MEDS ORDERED: Cefpodoxime (NF) 200 MG TAB PO SCH (20:00)
--- NOTE | 2018-01-17 22:18 | DS ---
CC: Dr. Singh. * DISCHARGE SUMMARY: DATE OF ADMISSION: 01/13/18 DATE OF DISCHARGE: 01/17/18 PROVIDER: Marcelino Herrera NP ATTENDING PHYSICIAN: Dr. Cash * (report dictated by Marcelino Herrera NP). PRIMARY CARE PROVIDER: Dr. Singh. DISCHARGE DIAGNOSES: 1. Pneumonia, left lung possible viral. 2. Transaminitis, unclear etiology. 3. Prediabetic, new diagnosis. SECONDARY DIAGNOSIS: Hypertension. DISCHARGE MEDICATIONS: 1. Irbesartan 150 mg p.o. daily. New Medications: 1. Probiotic 1 cap p.o. daily. 2. Vantin 200 mg p.o. q.12 hours x10 days. HISTORY OF PRESENT ILLNESS AND HOSPITAL COURSE: Please see history and physical by Dr. Doshi, for full admission details; but in summary, this is a 47 -year-old male who presented to the emergency department on 01/13/18, which was last , reporting that since that previous Wednesday he began to feel unwell , initially reporting a headache. He reports he worsened Wednesday, Wednesday, Wednesday but was able to go to work, but he continued to have a headache and cough. 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 There was concern for Legionella due to his chest x-ray showing a left pneumonitis which there is a clear left infiltrate on the chest x-ray. On the day of admission, he was at home and reports that he felt extremely unwell with a severe headache and noted a fever of 102 and a poor appetite along with diarrhea, which had developed 2 days prior. On initial evaluation in the emergency department, he had no leukocytosis and throughout hospitalization, he never amounted an elevated white blood cell count. He did have a noted elevated ESR of 75 and a C-reactive protein of 158.63 which did peak at 252.73. He also presented with elevated liver enzymes with an AST of 52 and an ALT of 78 with a normal bilirubin and normal alkaline phosphatase. His liver enzymes were stable throughout hospitalization and suspect that this is possibly secondary to fatty liver due to central obesity or possibly of alcohol abuse and which he does report that he drinks a "20 pack " 1 to 2 times a week frequently. However today, he did have a jump in his AST and ALT. Yesterday, his AST was 55 and ALT 75. Today, AST 116 and ALT 160. Due to this, I am obtaining liver ultrasound which is pending at the time of dictation. The patient had acute hepatitis panel which was nonreactive and unclear why his liver enzymes jumped today. The patient did have copious amounts of diarrhea, and Wednesday, during his hospitalization; however, this resolved on Wednesday and has had no diarrhea since. He reports he has had normal bowel movement this morning. His only complaint today is that he would like to leave the hospital and has some increased flatulence. In regards to his overall clinical picture, it does appear that he had a viral syndrome likely a viral pneumonia and initially during hospitalization was complaining of severe headache, body aches, and was febrile with temperatures between 101 and 103. Blood cultures were negative. He did have 1 bottle initially from admission growing Staphylococcus epidermidis, which is thought to be contaminant. Repeat blood cultures were drawn which are negative with no growth. Sputum culture has normal hunter. Urine culture has no growth. Legionella and S. pneumoniae urinary antigens are negative. MRSA nasal PCR screen was negative. Influenza A and B negative. HIV is pending at the time of dictation. The other possibility is that his legionella was a false negative. he has been treated with atypicals to cover for legionella. Clinically, the patient has done well throughout hospitalization. I have followed this patient for the past 4 days. He is dramatically better and appears to be at his baseline currently. He stated this morning, if we do not discharge him, he will leave against medical advice. I did convince the patient to stay for a liver ultrasound and that test result is pending. The plan will be for the patient to be discharged today and follow up with his primary care provider this week and I have asked the patient to have repeat lab work done in 2 days to monitor his liver function. As well, I have discussed with the patient that he has a noted hemoglobin A1c of 6, which would place him in the prediabetic stage. The patient insists he does not have prediabetes and "I get blood work every year and I have never had this". He is quite upset today and feels frustrated. I did discuss with the patient close follow up with his primary care regarding his prediabetes and post-hospitalization follow up. We also discussed diet control measures in regards to prediabetes. The patient refused referral to center to healthy living. He would prefer to be managed by his primary care doctor. I emphasized how important it was to have his follow up labs on Wednesday and to follow up with primary care this week. I have written the patient a work release note through this week as the patient was significantly acutely ill and believes it is in his most clinical interest to take the rest of the week and weekend to recover fully. I have instructed the patient that he should not drink any alcohol. This could worsen his liver status and should consider dramatically cutting down on his intake and binge drinking habits. The patient denies having a problem with alcohol. In regards to the patient's pneumonia, the patient was never on supplemental oxygen. He has been ambulating around the unit with a steady gait and is stable for discharge to home. DISCHARGE PLAN: 1. Follow up with Dr. Singh this week. 2. Follow up labs, Wednesday with a CMP, CRP, and CBC. 3. Follow up HIV status is pending at the time of dictation. 4. Liver ultrasound is pending at the time of dictation; however, plan is to await results and discuss with the patient prior to discharge. TIME SPENT: Approximately 60 minutes were spent on this discharge. DISCHARGE DISPOSITION: Home. DISCHARGE DISPOSITION STATUS: Stable. MARCELINO HERRERA, TIFFANIE [id number]/CPS #: [id number] CAROL
== END 2018-01-17 12:52 | disposition home or self-care (01) | DRG 720 ==
LOC: ED 17:16 → MEDTELE 21:56
PROVIDERS: ADMIT Hospitalist; ATTEND Internal Medicine
DX: A41.9 Sepsis, unspecified organism (principal); J18.9 Pneumonia, unspecified organism; E87.1 Hypo-osmolality and hyponatremia; K70.0 Alcoholic fatty liver; R74.0 Nonspecific elevation of levels of transaminase and lactic acid dehydrogenase [LDH]; R73.03 Prediabetes; B34.9 Viral infection, unspecified; I10 Essential (primary) hypertension; F10.10 Alcohol abuse, uncomplicated; R19.7 Diarrhea, unspecified; E66.9 Obesity, unspecified; Z68.33 Body mass index [BMI] 33.0-33.9, adult; Z79.899 Other long term (current) drug therapy; Z88.5 Allergy status to narcotic agent; Z80.1 Family history of malignant neoplasm of trachea, bronchus and lung; Z84.89 Family history of other specified conditions; Z87.891 Personal history of nicotine dependence
CPT/HCPCS: 36415; 71045; 76705; 80048; 80053; 80074; 80076; 80329; 81003; 81015; 82247; 82248; 83036; 83605; 83735; 83880; 84145; 84450; 84460; 84484; 85025; 85384; 85610; 85652; 85730; 86140; 86703; 87040; 87045; 87046; 87070; 87077; 87086; 87150; 87205; 87641; 87899; 93005; 99282; A9270-GY; G0480; J0360; J0456; J0696; J1200; J1644; J2765; J3370; J3480